=== PATIENT | female | born 2000 | race Caucasian/White ===

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

== ENCOUNTER 2020-06-26 21:27 | Emergency (ER) | payer OTHER, MEDICAID | END 2020-06-27 01:44 | disposition left against medical advice (07) | LOC: ER 21:27 | DX: Z53.21 Procedure and treatment not carried out due to patient leaving prior to being seen by health care provider (principal) ==